=== PATIENT | female | born 1990 | race Hispanic/Latino ===

== ENCOUNTER 2017-06-29 05:49 | Inpatient (IN) | payer MEDICAID ==
[~2017-06-29] VITALS: Ht 175.3 cm; Wt 102.1 kg
[2017-06-29] MEDS ORDERED: DEXTROSE 5%-LACTATED RINGERS 1,000 ML IV PRN (06:08)
[2017-06-29] MEDS ORDERED: LACTATED RINGERS 1000ML 1,000 ML IV PRN (06:08)
[2017-06-29] MEDS ORDERED: EPHEDRINE SULFATE 50 MG/ML AMPULE IVP PRN (06:15)
[2017-06-29] MEDS ORDERED: AMPICILLIN 2GM+NS 100ML 100 ML IV SCH (06:15)
[2017-06-29] MEDS ORDERED: LACTATED RINGERS 500 ML 500 ML IV PRN (06:15)
[2017-06-29] MEDS ORDERED: BUTORPHANOL TARTRATE 2 MG/ML IVP PRN (06:15)
[2017-06-29] MEDS ORDERED: NALOXONE HCL 0.4 MG/1 ML ML IV PRN (06:15)
[2017-06-29] MEDS ORDERED: OXYTOCIN 10 USP UNITS/ML 20 UNIT in LACTATED RINGERS 1000ML 1,000 ML IV SCH (06:30)
[2017-06-29 06:41] VITALS: BP 109/56
[2017-06-29] MEDS ORDERED: PREN-196 PO (06:41)
[2017-06-29 06:59] LABS: MEAN CORPUSCULAR HEMOGLOBIN 30.7 pg (27.0-33.0); MEAN CORPUSCULAR HGB CONC 33.9 g/dL (32.0-36.0); MEAN CORPUSCULAR VOLUME 90.7 fL (79-99); PLATELET COUNT (AUTO) 233 K/uL (130-400); RED BLOOD CELL COUNT(AUTO) 3.86 MIL/uL (4.00-5.50); RED CELL DISTRIBUTION WIDTH 14.5 % (11.0-15.5); WHITE BLOOD COUNT (AUTO) 10.1 K/uL (4.8-10.8)
[2017-06-29 07:00] LABS: APPEARANCE,URINE Clear (CLEAR); BILIRUBIN,URINE Negative (NEGATIVE); COLOR,URINE Yellow (YELLOW); GLUCOSE, URINE (UA) Negative (NEGATIVE); KETONES,URINE Negative (NEGATIVE); LEUKOCYTE ESTERASE ,URINE Small (NEGATIVE); NITRATE,URINE Negative (NEGATIVE); OCCULT BLOOD,URINE Negative (NEGATIVE); PH,URINE 6.5 (5.0-8.0); PROTEIN,URINE Negative (NEGATIVE); UROBILINOGEN,URINE 0.2 mg/dL (0.2-1.0)
[2017-06-29 07:12] LABS: BACTERIA,URINE Rare /HPF (None Seen); RBC,URINE 0-1 /HPF (0-1); WBC,URINE 0-1 /HPF (0-1)
[2017-06-29 07:13] LABS: SQUAMOUS EPITHELIAL CELL,UR Few /LPF (0-2)
[2017-06-29] MEDS ORDERED: LACTATED RINGERS 1000ML 1,000 ML IV ONE ×2 (07:18→19:41)
[2017-06-29] MEDS ORDERED: OXYTOCIN 10 USP UNITS/ML ONE ×3 (07:19→23:44)
[2017-06-29] MEDS: OXYTOCIN-LR 20 UNITS/1000 ML 1,000 ML IV SCH (07:45)
[2017-06-29] MEDS: ROPIVACAINE 0.2%200ML EPIDURAL 200 ML EP PRN ×2 (10:30→18:36)
[2017-06-29] MEDS: AMPICILLIN 1GM+NS 50ML 50 ML IV SCH ×3 (11:45→19:45)
[2017-06-29] MEDS ORDERED: LIDOCAINE HCL 1% 20 ML VIAL ONE (22:41)
[2017-06-29] MEDS ORDERED: METHYLERGONOVINE MALEATE 0.2 MG/1 ML ML ONE (23:33)
[2017-06-29] MEDS ORDERED: MISOPROSTOL 200 MCG TABLET ONE (23:37)
[2017-06-29] MEDS ORDERED: PROMETHAZINE HCL 25 MG/ML 1ML AMPULE IM ONE (23:41)
[2017-06-29] MEDS ORDERED: MEPERIDINE-PF 50 MG/ML SYG ONE (23:42)
[2017-06-30] MEDS ORDERED: BENZOCAINE/LANOLIN/ALOE VERA 60 ML AEROSOL TP PRN (00:15)
[2017-06-30] MEDS ORDERED: LANOLIN 30GM OINTMENT TP PRN (00:15)
[2017-06-30] MEDS ORDERED: HYDROCODONE/ACETAMINOPHEN 5/325 MG TAB PO PRN (00:15)
[2017-06-30] MEDS ORDERED: DIPH,PERTUSS(ACELL),TET VAC/PF 0.5 ML VIAL IM PRN (00:15)
[2017-06-30] MEDS ORDERED: MEASLES/MUMPS/RUBELLA VACCINE, LIVE 0.5 ML/VIAL SQ PRN (00:15)
[2017-06-30] MEDS ORDERED: WITCH HAZEL 1 PAD TP PRN (00:15)
[2017-06-30] MEDS ORDERED: ACETAMINOPHEN 325 MG TAB PO PRN (00:15)
[2017-06-30] MEDS: IBUPROFEN 800 MG TAB PO SCH ×3 (02:42→19:40)
[2017-06-30] MEDS ORDERED: OXYTOCIN 10 USP UNITS/ML ONE (03:10)
[2017-06-30 03:57] VITALS: BP 104/58
[2017-06-30] MEDS: OXYTOCIN-LR 20 UNITS/1000 ML 1,000 ML IV SCH (04:20)
[2017-06-30] MEDS ORDERED: CEFOXITIN SODIUM 1 GM VIAL IV SCH (06:00)
[2017-06-30 06:11] LABS: MEAN CORPUSCULAR HGB CONC 33.1 g/dL (32.0-36.0); MEAN CORPUSCULAR VOLUME 90.7 fL (79-99); PLATELET COUNT (AUTO) 199 K/uL (130-400); RED BLOOD CELL COUNT(AUTO) 2.75 MIL/uL (4.00-5.50); RED CELL DISTRIBUTION WIDTH 14.1 % (11.0-15.5); WHITE BLOOD COUNT (AUTO) 18.2 K/uL (4.8-10.8)
[2017-06-30 07:22] VITALS: BP 99/70
[2017-06-30] MEDS: CEFOXITIN SODIUM 2 GM VIAL IV SCH ×3 (08:01→22:48)
[2017-06-30] MEDS: DOCUSATE SODIUM 100 MG CAP PO SCH ×2 (09:16→20:48)
[2017-06-30] MEDS: FLU VACC QS2017-18 36MOS UP/PF 60 MCG/0.5 ML ML IM NR (09:18)
[2017-06-30 11:19] LABS: HEPATITIS Bs ANTIGEN SCREEN P Negative (Negative)
[2017-06-30 11:34] VITALS: BP 102/66
[2017-06-30 15:38] VITALS: BP 108/60
[2017-06-30 19:35] VITALS: BP 132/88
[2017-06-30] MEDS: AMPICILLIN 1GM+NS 50ML 50 ML IV SCH (19:43)
[2017-06-30 23:22] VITALS: BP 103/55
[2017-07-01] MEDS: IBUPROFEN 800 MG TAB PO SCH ×2 (03:51→12:08)
[2017-07-01 04:10] VITALS: BP 105/58
[2017-07-01] MEDS: CEFOXITIN SODIUM 2 GM VIAL IV SCH ×2 (04:54→08:21)
[2017-07-01 07:47] VITALS: BP 112/72
[2017-07-01] MEDS: DOCUSATE SODIUM 100 MG CAP PO SCH (08:17)
[2017-07-01] MEDS: AMPICILLIN 1GM+NS 50ML 50 ML IV SCH (08:21)
[2017-07-01] MEDS: FLU VACC QS2017-18 36MOS UP/PF 60 MCG/0.5 ML ML IM NR (08:21)
[2017-07-01 11:25] VITALS: BP 115/75
[2017-07-01] MEDS ORDERED: DOCU100C33 PO (14:06)
[2017-07-01] MEDS ORDERED: MO8B PO (14:07)
[2017-07-01] MEDS ORDERED: ACET1TAB25 PO (14:12)
[2017-07-01 15:27] VITALS: BP_SYST 111; BP_SYST 119; BP_DIAS 60; BP_DIAS 67
== END 2017-07-01 19:00 | disposition home or self-care (01) | DRG 560 ==
LOC: LDH 05:49 → WSH 06-30 03:45
PROVIDERS: ADMIT Obstetrics & Gynecology; ATTEND Obstetrics & Gynecology
PROC: 0KQM0ZZ Repair Perineum Muscle, Open Approach (ICD-10-PCS; principal; 2017-06-29)
PROC: 10E0XZZ Delivery of Products of Conception, External Approach (ICD-10-PCS; 2017-06-29)
PROC: 10907ZC Drainage of Amniotic Fluid, Therapeutic from Products of Conception, Via Natural or Artificial Opening (ICD-10-PCS; 2017-06-29)
PROC: 3E0R3BZ Introduction of Anesthetic Agent into Spinal Canal, Percutaneous Approach (ICD-10-PCS; 2017-06-29)
PROC: 00HU33Z Insertion of Infusion Device into Spinal Canal, Percutaneous Approach (ICD-10-PCS; 2017-06-29)
PROC: 3E0234Z Introduction of Serum, Toxoid and Vaccine into Muscle, Percutaneous Approach (ICD-10-PCS; 2017-06-29)
PROC: 3E0134Z Introduction of Serum, Toxoid and Vaccine into Subcutaneous Tissue, Percutaneous Approach (ICD-10-PCS; 2017-06-29)
DX: O62.2 Other uterine inertia (principal); O70.1 Second degree perineal laceration during delivery; O77.0 Labor and delivery complicated by meconium in amniotic fluid; O99.824 Streptococcus B carrier state complicating childbirth; Z37.0 Single live birth; Z3A.40 40 weeks gestation of pregnancy
CPT/HCPCS: 36415; 81001; 85027; 86592; 86850; 86900; 86901; 87340; 90715; A4218; A4314; J0290; J0694; J2175; J2210; J2550; J2590; J7120; Q2038

== ENCOUNTER 2018-03-09 06:00 | Day surgery (SDC) | payer MEDICAID ==
[2018-03-06 15:42] LABS: BASOPHILS % (AUTO) 0.5 % (0.0-5.0); EOSINOPHILS % (AUTO) 1.9 % (0.0-8.0); HEMATOCRIT 36.9 % (36-48); LYMPHOCYTES % (AUTO) 22.8 % (21.0-51.0); MEAN CORPUSCULAR HEMOGLOBIN 29.4 pg (27.0-33.0); MEAN CORPUSCULAR HGB CONC 34.2 g/dL (32.0-36.0); MONOCYTES % (AUTO) 3.8 % (3.0-13.0); PLATELET COUNT (AUTO) 301 K/uL (130-400); RED BLOOD CELL COUNT(AUTO) 4.28 MIL/uL (4.00-5.50); RED CELL DISTRIBUTION WIDTH 13.7 % (11.0-15.5); WHITE BLOOD COUNT (AUTO) 7.5 K/uL (4.8-10.8)
[2018-03-06 16:26] VITALS: BP 119/69
[~2018-03-09] VITALS: Ht 175.3 cm; Wt 79.9 kg
[~2018-03-09 06:00] MED LIST: ACET1TAB25 PO; CEFAZOLIN SODIUM 1 GM VIAL IVP SCH; DOCU100C33 PO; LACTATED RINGERS 1000ML 1,000 ML IV SCH; MO8B PO; PREN-196 PO
[2018-03-09 06:10] VITALS: BP 115/72
[2018-03-09] MEDS ORDERED: CALC-1106 PO (06:54)
[2018-03-09] MEDS ORDERED: PRENATAL DHA PO (06:54)
[2018-03-09] MEDS ORDERED: FERR1TAB22 PO (06:54)
[2018-03-09] MEDS ORDERED: ASCO1TAB43 PO (06:54)
[2018-03-09] MEDS ORDERED: [UNRECOGNIZED DRUG - OTHER] PO (06:54)
[2018-03-09] MEDS ORDERED: CEFAZOLIN SODIUM 1 GM VIAL IVP ONE (07:10)
[2018-03-09 08:40] VITALS: BP 102/59
[2018-03-09] MEDS ORDERED: MEPERIDINE-PF 50 MG/ML SYG ONE (10:58)
[2018-03-09] MEDS ORDERED: PROMETHAZINE HCL 25 MG/ML 1ML AMPULE IM ONE (10:59)
[2018-03-09 13:20] VITALS: BP 101/64
[2018-03-09 15:40] VITALS: BP 114/60
== END 2018-03-09 15:55 | disposition home or self-care (01) ==
LOC: DAH 06:00 → WSH 13:20 → DAH 15:55
PROVIDERS: ATTEND Obstetrics & Gynecology
DX: O34.31 Maternal care for cervical incompetence, first trimester (principal); O24.311 Unspecified pre-existing diabetes mellitus in pregnancy, first trimester; E11.9 Type 2 diabetes mellitus without complications; O16.1 Unspecified maternal hypertension, first trimester; Z72.89 Other problems related to lifestyle; Z79.899 Other long term (current) drug therapy
CPT/HCPCS: 36415; 59320; 76801; 85025; 86850; 86900; 86901; A4510; A4600; A4606; J0690 ×2; J2175; J2550; J7120 ×3; A4218

== ENCOUNTER 2018-09-06 06:11 | Inpatient (IN) | payer MEDICAID | END 2018-09-07 17:20 | disposition home or self-care (01) | LOC: LDH 06:11 → WSH 15:59 | PROC: 10E0XZZ Delivery of Products of Conception, External Approach (ICD-10-PCS; principal; ~2018-09-06) | PROC: 3E033VJ Introduction of Other Hormone into Peripheral Vein, Percutaneous Approach (ICD-10-PCS; ~2018-09-06) | DX: O80 Encounter for full-term uncomplicated delivery (principal); Z37.0 Single live birth; Z3A.39 39 weeks gestation of pregnancy ==